=== PATIENT | female | born 2000 ===

== ENCOUNTER 2024-04-02 08:00 | Outpatient (CLI) | payer OTHER ==
[2024-04-02 21:43] LABS: BACTERIAL VAGINOSIS DNA NEGATIVE (NEGATIVE); CANDIDA GLABRATA DNA NEGATIVE (NEGATIVE); CANDIDA GROUP DNA NEGATIVE (NEGATIVE); CANDIDA KRUSEI DNA NEGATIVE (NEGATIVE); TRICHOMONAS VAGINALIS DNA NEGATIVE (NEGATIVE)
[2024-04-02 23:07] LABS: CHLAMYDIA TRACHOMATIS DNA NEGATIVE (NEGATIVE); NEISSERIA GONORRHOEAE DNA NEGATIVE (NEGATIVE)
== END 2024-04-02 23:59 | disposition home or self-care (01) ==
LOC: LAB.WC 08:00
PROVIDERS: ATTEND Obstetrics & Gynecology
DX: N89.8 Other specified noninflammatory disorders of vagina (principal); Z11.3 Encounter for screening for infections with a predominantly sexual mode of transmission; N96 Recurrent pregnancy loss
CPT/HCPCS: 36415; 81514; 83036; 84443; 85598; 85613; 85732; 86147; 87491; 87591; 87661

== ENCOUNTER 2024-04-02 15:50 | Outpatient (CLI) | payer OTHER ==
[2024-04-02 16:40] LABS: THYROID STIMULATING HORMONE 3.39 uIU/mL (0.34-5.60)
[2024-04-02 21:05] LABS: ESTIMATED AVERAGE GLUCOSE 100 mg/dL (70-100); HEMOGLOBIN A1c% 5.1 % (4.27-6.07)
== END 2024-04-02 15:51 | disposition home or self-care (01) ==
LOC: LAB 15:50
PROVIDERS: ATTEND Obstetrics & Gynecology
DX: N96 Recurrent pregnancy loss (principal)
CPT/HCPCS: 36415; 83036; 84443; 85598; 85613; 85732; 86147

== ENCOUNTER 2024-07-28 15:21 | Outpatient (CLI) | payer OTHER ==
[2024-07-28 22:19] LABS: CHLAMYDIA TRACHOMATIS DNA NEGATIVE (NEGATIVE); NEISSERIA GONORRHOEAE DNA NEGATIVE (NEGATIVE); TRICHOMONAS VAGINALIS DNA NEGATIVE (NEGATIVE)
[2024-07-29 05:17] LABS: RPR Non Reactive (Non Reactive)
== END 2024-07-28 15:22 | disposition home or self-care (01) ==
LOC: LAB 15:21
DX: R76.11 Nonspecific reaction to tuberculin skin test without active tuberculosis (principal); Z11.3 Encounter for screening for infections with a predominantly sexual mode of transmission
CPT/HCPCS: 81599; 86592; 87491; 87591; 87661